=== PATIENT | male | born 1960 | race Caucasian/White ===

== ENCOUNTER 2016-11-18 12:13 | Inpatient (IN) | payer OTHER ==
[~2016-11-18] VITALS: Ht 172.7 cm; Wt 83.5 kg
--- NOTE | 2016-11-18 12:20 | NUR ---
PT BIB RA C/O SEVERE SOB WITH BREATHING TX ONGOING FROM RESCUE. PT USES ALBUTEROL INHALER FOR ASHTMA AT HOME. WHEEZES EASILY AUDIBLE AND INCREASED WORK OF BREATHING. NO RETRACTIONS. DENIES PAIN. SKIN WARM NONDIAPHORETIC. IN ER BED 09 ON MON[address]OR. NOTED WITH [address]. RT NOTIFIED. AWARE.
[2016-11-18 12:52] LABS: BASOPHILS # (AUTO) 0.1 /CMM (0.0-0.2); BASOPHILS % (AUTO) 1.3 % (0.0-2.0); EOSINOPHILS # (AUTO) 0.8 /CMM (0.0-0.7); EOSINOPHILS % (AUTO) 8.6 % (0.0-6.0); HEMATOCRIT 46 % (39-51); HEMOGLOBIN 14.6 g/dL (13.5-17.5); LYMPHOCYTES # (AUTO) 2.1 /CMM (0.8-4.8); LYMPHOCYTES % (AUTO) 22.2 % (20.0-44.0); MEAN CORPUSCULAR HEMOGLOBIN 23 PG (26.0-33.0); MEAN CORPUSCULAR HGB CONC 32 g/dl (31.0-36.0); MEAN CORPUSCULAR VOLUME 74 fL (80-96); MONOCYTES # (AUTO) 0.3 /CMM (0.1-1.30); MONOCYTES % (AUTO) 2.7 % (2.0-12.0); NEUTROPHILS # (AUTO) 6.1 /CMM (1.8-8.9); NEUTROPHILS % (AUTO) 65.2 % (43.0-81.0); PLATELET COUNT (AUTO) 175 /CMM (150-450); RDW COEFFICIENT OF VARIATION 15.6 (11.5-15.0); RED BLOOD CELL COUNT(AUTO) 6.31 MIL/uL (4.5-6.0); WHITE BLOOD COUNT (AUTO) 9.4 K/uL (4.3-11.0)
[2016-11-18] MEDS ORDERED: ALBUTEROL FS 2.5 MG/3 ML VIAL.NEB CONTNEB ONE (13:00)
[2016-11-18] MEDS ORDERED: methylPREDNISolone SOD SUCC 125 MG/2ML VIAL IV ONE (13:00)
[2016-11-18] MEDS ORDERED: IPRATROPIUM NEB FS 0.5 MG/2.5 ML AMPUL.NEB NEB ONE (13:00)
[2016-11-18 13:03] LABS: CALCIUM, SERUM 8.4 mg/dL (8.5-10.1); CARBON DIOXIDE 27 mmol/L (21-32); CHLORIDE 107 mmol/L (98-107); CREATININE 1.1 mg/dL (0.6-1.3); GLUCOSE 145 mg/dL (74-106); POTASSIUM 3.3 mmol/L (3.5-5.1); SODIUM SERUM 142 mmol/L (136-145); UREA NITROGEN, BLOOD 16 mg/dL (7-18)
[2016-11-18] MEDS ORDERED: IPRATROPIUM NEB FS 0.5 MG/2.5 ML AMPUL.NEB ONE (13:09)
[2016-11-18] MEDS ORDERED: ALBUTEROL FS 2.5 MG/3 ML VIAL.NEB ONE (13:09)
[2016-11-18] MEDS ORDERED: methylPREDNISolone SOD SUCC 125 MG/2ML VIAL ONE (13:11)
[2016-11-18 13:16] LABS: TROPONIN I < 0.017 ng/mL (0.00-0.056)
[2016-11-18 13:19] LABS: ALANINE AMINOTRANSFERASE 22 U/L (12-78); ALBUMIN 3.8 g/dL (3.4-5.0); ALKALINE PHOSPHATASE 116 U/L (46-116); ASPARTATE AMINOTRANSFERASE 23 U/L (15-37); B-TYPE NATRIURETIC PEPTIDE 27 PG/ML (0-125); BILIRUBIN,DIRECT 0.1 mg/dL (0.0-0.2); BILIRUBIN,TOTAL 0.6 mg/dL (0.2-1.0); TOTAL PROTEIN, SERUM 7.3 g/dL (6.4-8.2)
--- NOTE | 2016-11-18 13:35 | NUR ---
PT APPEARS IN MUCH LESS RESP DISTRESS THAN ON PRESENTATION. REPORTS EASE OF RESPIRATION. BREATHING TX ONGOING.
--- NOTE | 2016-11-18 14:24 | NUR ---
PLACED ON 2L O2 VIA NC FOR SUPPORT
--- NOTE | 2016-11-18 14:40 | NUR ---
REPORT GIVEN TO AFSATU RN FOR ADMISSION.
--- NOTE | 2016-11-18 14:52 | NUR ---
PUBLIC DEFENDER OPENING NOTES RECEIVED PT. FROM ER NURSE IN STABLE CONDITION. PT. IS A/O X4. ON 2 L NC SATING WELL AT 96% NO SOB OR SIGNS OF DISTRESS NOTED. BREATHING IS EVEN AND UNLABORED. SINUS TACH ON TELE MONITOR WITH A HR OF 103. WILL CONTINUE TO MONITOR AND COMPLETE ADMISSION PROCESS.
--- NOTE | 2016-11-18 14:55 | NUR ---
PT TRANSPORTED TO TELE IN STABLE CONDITION VIA ACLS PROTOCOL
[2016-11-18] MEDS ORDERED: BUDE10.2 INH (15:01)
[2016-11-18] MEDS ORDERED: LEVO50TA8 PO (15:01)
[2016-11-18] MEDS ORDERED: ACETAMINOPHEN 325 MG TABLET PO PRN (15:30)
[2016-11-18] MEDS ORDERED: ONDANSETRON HCL/PF 4 MG/2 ML VIAL IVP PRN (15:30)
[2016-11-18 15:59] VITALS: BP 127/70
[2016-11-18 16:00] VITALS: BP 127/70
[2016-11-18] MEDS: methylPREDNISolone SOD SUCC 125 MG/2ML VIAL IV SCH (16:34)
[2016-11-18] MEDS: GUAIFENESIN LA 600 MG TABLET.SA PO SCH (16:34)
[2016-11-18] MEDS: PANTOPRAZOLE 40 MG VIAL IV SCH (16:35)
[2016-11-18] MEDS: IPRATROPIUM NEB FS 0.5 MG/2.5 ML AMPUL.NEB NEB SCH ×2 (16:46→20:41)
[2016-11-18] MEDS: ALBUTEROL FS 2.5 MG/0.5 ML VIAL.NEB NEB SCH ×2 (16:47→20:41)
[2016-11-18] MEDS ORDERED: POTASSIUM CHLORIDE 20 MEQ TAB.PRT.SR PO ONE (18:30)
--- NOTE | 2016-11-18 18:48 | NUR ---
NAVIGATION TEACHER CLOSING NOTES PT. IN STABLE CONDITION. NO SOB OR SIGNS OF DISTRESS NOTED. BREATHING REMAINS EVEN AND UNLABORED. ALL NEEDS WERE MET DURING SHIFT AND ORDERS CARRIED OUT ACCORDINGLY. WILL ENDORSE TO NIGHTSHIFT NURSE FOR LINDSAY
--- NOTE | 2016-11-18 19:30 | NUR ---
RN NOTE; RECEIVED PT IN BED AWAKE AND ALERT, OX4. BREATHING EVENLY. AMBULATING IN THE ROOM . NO SOB. NO DISTRESS. SR ON TELE MONITOR. SKIN WARM AND DRY.NO C/O PAIN OR DISCOMFORT AT THIS TIME. CALL LIGHT WITHIN REACH .WILL CONT TO MONITOR.
[2016-11-18 20:00] VITALS: BP 129/74
[2016-11-18 20:01] VITALS: BP 129/74
[2016-11-18 23:57] VITALS: BP 114/54
[2016-11-19] MEDS: ALBUTEROL FS 2.5 MG/0.5 ML VIAL.NEB NEB SCH ×3 (01:30→13:30)
[2016-11-19] MEDS: IPRATROPIUM NEB FS 0.5 MG/2.5 ML AMPUL.NEB NEB SCH ×3 (01:30→13:30)
[2016-11-19 04:00] VITALS: BP 134/81
--- NOTE | 2016-11-19 06:22 | NUR ---
RN NOTE; PT IN BED AWAKE AND ALERT. BREATHING EVENLY. NO SOB. NAD. NO S/S OF ALLERGIC REACTION . NO ACUTE EVENT DURING THE NIGHT. REMAINED STABLE. ASSISTED W/ ADLS. CALL LIGHT WITHIN REACH. WILL CONT TO MONITOR AND WILL ENDORSE TO AM SHIFT FOR LINDSAY.
[2016-11-19 06:59] LABS: HEMATOCRIT 43 % (39-51); HEMOGLOBIN 13.8 g/dL (13.5-17.5); MEAN CORPUSCULAR HEMOGLOBIN 24 PG (26.0-33.0); MEAN CORPUSCULAR HGB CONC 32 g/dl (31.0-36.0); MEAN CORPUSCULAR VOLUME 75 fL (80-96); MONOCYTES # (AUTO) 0.2 /CMM (0.1-1.30); MONOCYTES % (AUTO) 1.3 % (2.0-12.0); NEUTROPHILS # (AUTO) 15.7 /CMM (1.8-8.9); NEUTROPHILS % (AUTO) 92.7 % (43.0-81.0); PLATELET COUNT (AUTO) 214 /CMM (150-450); RDW COEFFICIENT OF VARIATION 16.7 (11.5-15.0); RED BLOOD CELL COUNT(AUTO) 5.78 MIL/uL (4.5-6.0); WHITE BLOOD COUNT (AUTO) 16.9 K/uL (4.3-11.0)
[2016-11-19 07:01] LABS: ALBUMIN 3.6 g/dL (3.4-5.0); BILIRUBIN,TOTAL 0.5 mg/dL (0.2-1.0); CALCIUM, SERUM 8.7 mg/dL (8.5-10.1); MAGNESIUM 1.6 mg/dL (1.8-2.4); POTASSIUM 4.8 mmol/L (3.5-5.1); TOTAL PROTEIN, SERUM 7.3 g/dL (6.4-8.2)
--- NOTE | 2016-11-19 07:10 | NUR ---
APPLICATION PACKAGER OPENING NOTES RECEIVED PT. FROM NIGHTSHIFT NURSE IN STABLE CONDITION. PT IS A/O X4. ON RA SATING WELL @ 95% NO SOB OR SIGNS OF DISTRESS NOTED. BREATHING IS EVEN AND UNLABORED. IV PRESENT ON LEFT FOREARM 18G PATENT AND INTACT. BED IN LOW LOCKED POSITION, SIDE RAILS UP X2, CALL LIGHT WITHIN REACH. WILL CONTINUE TO MONITOR.
[2016-11-19 08:00] VITALS: BP 138/84
[2016-11-19] MEDS: PANTOPRAZOLE 40 MG VIAL IV SCH (08:42)
[2016-11-19] MEDS: methylPREDNISolone SOD SUCC 125 MG/2ML VIAL IV SCH ×2 (08:42→12:37)
[2016-11-19] MEDS: GUAIFENESIN LA 600 MG TABLET.SA PO SCH (08:42)
[2016-11-19] MEDS ORDERED: SECONDARY IV SET 1 EA INFUS.SET MC ONE (12:31)
[2016-11-19] MEDS ORDERED: IV NS 0.9% 250 ML IV ONE (12:31)
[2016-11-19] MEDS ORDERED: IV SET PRIMARY PUMP SET 1 EA INFUS.SET MC ONE (12:31)
[2016-11-19] MEDS: Magnesium 1GM/D5W 100ML PREMIX 100 ML IV SCH ×2 (12:37→13:45)
[2016-11-19] MEDS ORDERED: K PHOS NEUTRAL 250 MG TABLET PO ONE (14:30)
--- NOTE | 2016-11-19 15:50 | NUR ---
MS RN CLOSING NOTES PT. WAS DISCHARGED FROM UNIT IN STABLE CONDITION. ALL NEEDS WERE MET DURING SHIFT AND ORDERS CARRIED OUT ACCORDINGLY. PT. LEFT SAFELY VIA PRIVATE VEHICLE DRIVEN BY HIS DAUGHTER
== END 2016-11-19 15:53 | disposition home or self-care (01) | DRG 141 ==
LOC: ER 12:15 → TELE 14:23 → MED 11-19 11:14
PROVIDERS: ADMIT Internal Medicine; ATTEND Internal Medicine
DX: J45.901 Unspecified asthma with (acute) exacerbation (principal); E87.6 Hypokalemia; G89.29 Other chronic pain; R73.9 Hyperglycemia, unspecified; T39.315A Adverse effect of propionic acid derivatives, initial encounter; Y92.009 Unspecified place in unspecified non-institutional (private) residence as the place of occurrence of the external cause
CPT/HCPCS: 36415; 71010-TC; 80048-TC; 80053-TC; 80076-TC; 83735-TC; 83880; 84100-TC; 84484-TC; 85025-TC; 87081-TC; A4606; C9113; J2930; J3475; J7050; Z7610

== ENCOUNTER 2017-05-24 21:39 | Emergency (ER) | payer OTHER ==
[~2017-05-24] VITALS: Ht 172.7 cm; Wt 81.6 kg
[~2017-05-24 21:39] MED LIST: BUDE10.2 INH; LEVO50TA8 PO
--- NOTE | 2017-05-24 21:40 | NUR ---
TO BED 2 BIB [facility]AM[facility] C/O WORSENING SOB ALL DAY. WHEEZING HEARD BILATERALLY ON AUSCULTATION. PT AAOX4. SSKIN WARM NONDIAPHORETIC, WHEEZING HEARD BILATERALLY ON AUSCULATION. PLACE PT ON CARDIAC MONITORING, CONTINUOUS POX, O2@4L/NC. SL 20G TO L WRIST SPICE GRINDER. PENDING ER MD CHANG.
[2017-05-24] MEDS ORDERED: ALBUTEROL SULFATE 8 GM HFA.AER.AD IH ONE (22:00)
[2017-05-24] MEDS ORDERED: IPRATROPIUM NEB FS 0.5 MG/2.5 ML AMPUL.NEB ONE (22:18)
[2017-05-24] MEDS ORDERED: ALBUTEROL FS 2.5 MG/3 ML VIAL.NEB ONE (22:18)
--- NOTE | 2017-05-24 22:19 | NUR ---
BLOOD DRAWN AND SENT TO LAB.
[2017-05-24] MEDS ORDERED: ALBUTEROL FS 2.5 MG/3 ML VIAL.NEB CONTNEB ONE (22:30)
[2017-05-24] MEDS ORDERED: IPRATROPIUM NEB FS 0.5 MG/2.5 ML AMPUL.NEB NEB ONE (22:30)
[2017-05-24] MEDS ORDERED: DEXAMETHASONE SOD PHOSPHATE 10 MG/ML VIAL IV ONE (22:30)
[2017-05-24 22:38] LABS: BASOPHILS # (AUTO) 0.1 /CMM (0.0-0.2); BASOPHILS % (AUTO) 1.7 % (0.0-2.0); EOSINOPHILS # (AUTO) 0.7 /CMM (0.0-0.7); EOSINOPHILS % (AUTO) 8.3 % (0.0-6.0); HEMATOCRIT 41 % (39-51); HEMOGLOBIN 13.1 g/dL (13.5-17.5); LYMPHOCYTES # (AUTO) 1.6 /CMM (0.8-4.8); LYMPHOCYTES % (AUTO) 19.7 % (20.0-44.0); MEAN CORPUSCULAR HEMOGLOBIN 22 PG (26.0-33.0); MEAN CORPUSCULAR HGB CONC 32 g/dl (31.0-36.0); MEAN CORPUSCULAR VOLUME 68 fL (80-96); MONOCYTES # (AUTO) 0.6 /CMM (0.1-1.30); MONOCYTES % (AUTO) 7.9 % (2.0-12.0); NEUTROPHILS # (AUTO) 5.2 /CMM (1.8-8.9); NEUTROPHILS % (AUTO) 62.4 % (43.0-81.0); PLATELET COUNT (AUTO) 157 /CMM (150-450); RDW COEFFICIENT OF VARIATION 17.1 (11.5-15.0); WHITE BLOOD COUNT (AUTO) 8.2 K/uL (4.3-11.0)
[2017-05-24 22:45] LABS: ABG BASE EXCESS -2.8 mmol/L; ABG OXYGEN SATURATION 86.7 % (92.0-98.5); ABG PCO2 38.9 mmHg (35.0-45.0); ABG PH 7.372 (7.350-7.450); ABG PO2 52.2 mmHg (75.0-100.0); COHb 0.4 % (0.5-1.5); MetHb 0.6 % (0.0-1.5); O2Hb 85.8 % (94.0-97.0); VENT MODE, BG NEB MASK 7L
[2017-05-24] MEDS ORDERED: DOXYCYCLINE HYCLATE (100 MG) 100 MG TABLET PO ONE (23:00)
[2017-05-24 23:06] LABS: CALCIUM, SERUM 8.2 mg/dL (8.5-10.1); CREATININE 1.2 mg/dL (0.6-1.3); POTASSIUM 3.7 mmol/L (3.5-5.1)
[2017-05-24] MEDS ORDERED: DOXYCYCLINE HYCLATE (100 MG) 100 MG TABLET ONE (23:06)
[2017-05-24] MEDS ORDERED: DEXAMETHASONE SOD PHOSPHATE 10 MG/ML VIAL ONE (23:06)
[2017-05-24 23:13] LABS: INR 0.96 (0.87-1.13)
[2017-05-24 23:15] LABS: TROPONIN I 0.025 ng/mL (0.00-0.056)
--- NOTE | 2017-05-25 00:02 | NUR ---
IV removed. Catheter intact and site benign. Pressure and 4x4 applied to site. No bleeding noted. Patient discharged to home in stable condition. Written and verbal after care instructions given. Patient verbalizes understanding of instruction. ambulatory with a steady gait. pt aaox4 no acute distress noted, resp even and unlabored. pt at bedside to take pt home.
[2017-05-25 00:05] VITALS: BP 123/68
== END 2017-05-25 00:06 | disposition home or self-care (01) ==
LOC: ER 21:40
DX: J44.1 Chronic obstructive pulmonary disease with (acute) exacerbation (principal); J06.9 Acute upper respiratory infection, unspecified; J45.909 Unspecified asthma, uncomplicated; F17.200 Nicotine dependence, unspecified, uncomplicated; Z88.6 Allergy status to analgesic agent; Z88.8 Allergy status to other drugs, medicaments and biological substances
CPT/HCPCS: 36415; 36600; 71010; 80048; 84484; 85025; 85730; 87804; 93005; 94640 ×2; 96374; 99285; A4606; J1100; Z7610; 87400